=== PATIENT | female | born 1965 | race Caucasian/White ===

== ENCOUNTER → 2018-02-28 | Outpatient (CLI) | payer OTHER ==
[2018-02-28 10:06] LABS: BASOPHIL % 0.8 % (0-2); PLATELET COUNT 221 x10^3mcL (130-400); RED CELL DISTRIBUTION WIDTH 13.1 % (11.5-14.5)
[2018-02-28 10:07] LABS: UA SPECIFIC GRAVITY 1.015 (1.005-1.035); microscopic required? YES; urine erythrocyte TRACE (NEGATIVE)
[2018-02-28 10:31] LABS: T3 TOTAL 0.9 ng/mL
[2018-02-28 10:35] LABS: FREE T4 0.83 ng/dL (0.76-1.46); FREE THYROXINE INDEX 2.1 ug/dL (1.4-4.5); T4(THYROXINE) 6.1 ug/dL (4.7-13.3)
[2018-02-28 10:36] LABS: ALBUMIN 3.8 g/dL (3.4-5.0); ALKALINE PHOSPHATASE 80 U/L (46-116); ALT/SGPT 22 U/L (14-59); AST/SGOT 20 U/L (15-37); CALCIUM 9.3 mg/dL (8.5-10.1); CARBON DIOXIDE 28.5 mmol/L (21-32); CHLORIDE SERUM 107 mmol/L (98-107); CHOLESTEROL 150 mg/dL (<200); CHOLESTEROL/HDL RATIO 3.1; CREATININE SERUM 0.7 mg/dL (0.6-1.0); GFR1 > 60 mL/min; GLUCOSE SERUM 107 mg/dL (74-106); HDL CHOLESTEROL 48 mg/dL (40-60); POTASSIUM SERUM 4.4 mmol/L (3.5-5.1); SODIUM SERUM 143 mmol/L (136-145); TOTAL PROTEIN, SERUM 7.6 g/dL (6.4-8.2); TRIGLYCERIDES 102 mg/dL (<150)
== END | disposition home or self-care (01) ==
LOC: MA 08:42
PROC: BH02ZZZ Plain Radiography of Bilateral Breasts (ICD-10-PCS; principal; 2018-02-28)
DX: Z12.31 Encounter for screening mammogram for malignant neoplasm of breast (principal)
CPT/HCPCS: 77066; 84439

== ENCOUNTER → 2018-10-20 | Outpatient (CLI) | payer OTHER | END | disposition home or self-care (01) | LOC: RD 11:09 | DX: M79.672 Pain in left foot (principal); M25.561 Pain in right knee ==

== ENCOUNTER 2020-07-28 11:58 | Emergency (ER) | payer SELFPAY ==
[~2020-07-28] VITALS: Ht 165.1 cm; Wt 82.6 kg
[2020-07-28 12:59] VITALS: Ht 165.1 cm; Wt 82.6 kg
[2020-07-28 14:01] VITALS: BP 145/65
== END 2020-07-28 14:01 | disposition home or self-care (01) ==
LOC: ED 11:58
DX: T63.2X1A Toxic effect of venom of scorpion, accidental (unintentional), initial encounter (principal); Y92.89 Other specified places as the place of occurrence of the external cause
CPT/HCPCS: 90715